=== PATIENT | female | born 2005 | race Two or more races ===

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

== ENCOUNTER 2025-02-25 02:42 | Observation (INO) | payer BC, SELFPAY ==
[2025-02-25] VITALS (23 sets, daily range): BP systolic 52–127; BP diastolic 36–74; PULSE 68–109; RESP 16–21; TEMP 36.1–37.1; O2SAT 95–100; BMI 32.9
--- NOTE | 2025-02-25 02:56 | XR_ITS ---
Examination: Retroperitoneal ultrasound, complete Technique: Multiple high resolution grayscale images of the retroperitoneum obtained, including kidneys and bladder. Exam date and time: February 25, 2025, 0437 hours INDICATIONS: Flank pain abdominal pain beginning at 2:00 a.m. this morning FINDINGS: Right kidney 11.2 cm renal cortex 1.7 cm Left kidney 11.0 cm renal cortex 3.1 cm No hydronephrosis or renal calculi Contracted urinary bladder IMPRESSION: No hydronephrosis or renal calculi
--- NOTE | 2025-02-25 02:56 | XR_ITS ---
Examination: Transvaginal ultrasound of the pelvis, complete Technique: Transvaginal sonographic images pelvis performed using goodwin scale imaging Exam date and time: February 25, 2025, 0422 hours INDICATIONS: Pelvic pain beginning 2:00 a.m. this morning FINDINGS: Uterus 7.3 cm endometrial stripe 1.27 cm no uterine mass or intrauterine gestation Right ovary 5.6 cm arterial flow, 4.8 x 2.6 x 4.0 cm cyst Left ovary 2.8 cm arterial flow IMPRESSION: No uterine mass or intrauterine gestation Right ovarian cyst 4.8 x 2.6 x 4.0 cm with internal echogenicity, consider hemorrhagic cyst.
--- NOTE | 2025-02-25 02:56 | EDRME_ITS ---
Rapid Medical Screening Exam [facility] Arrival date/time: 02/25/25 02:42 19F with no significant PMH presents to ED with several hours of sudden bilateral lower ab/pelvic pain and possible dysuria. Patient is not on cycle. Chief Complaint: Abdominal Pain Vital signs: Vital Signs Temperature 98.3 F 02/25/25 02:50 Pulse Rate 104 H 02/25/25 02:50 Respiratory Rate 18 02/25/25 02:50 Blood Pressure 102/72 02/25/25 02:50 Pulse Oximetry (%) 97 02/25/25 02:50 Oxygen Delivery Method Room Air 02/25/25 02:50 Exam: RLQ and LLQ mild tenderness Clinical Impression: appy vs ovarian torsion vs pelvic pain vs PID gastroenteritis vs ab pain vs food poisoning
--- NOTE | 2025-02-25 02:58 | XR_ITS ---
Examination: Abdomen sonogram, Limited Date and time of exam: February 25, 2025, 0433 hours INDICATIONS: Pelvic lower abdominal cramping beginning 2:00 a.m. this morning Technique: Real-time goodwin scale transabdominal sonographic images of the lower abdomen obtained. Findings: No sonographic visualization appendix 4.8 x 3.6 x 4.2 cm right adnexal cyst IMPRESSION: No sonographic visualization appendix
[2025-02-25] MEDS: NAPROXEN 250 MG TABLET 500 MG PO (03:25)
[2025-02-25 03:49] LABS: Collection Type, Urine Clean Catch
[2025-02-25 03:56] LABS: HCG Qualitative,Urine Negative
[2025-02-25 03:57] LABS: Amorphous Crystals,Urine Present (Absent); Bacteria,Urine Rare; Bilirubin,Urine Negative (Negative); Blood,Urine Negative (Negative); Clarity,Urine Clear (Clear/Hazy); Color,Urine Lt-Yellow (Lt Yel-Yel); Culture Indicated,Urine Not Indicated; Glucose, Urine Negative (Negative); Ketones,Urine Negative (Negative); Leukocyte Esterase,Urine Negative (Negative); Nitrite,Urine Negative (Negative); PH,Urine 6.5 (5.0-7.0); Protein,Urine Negative (Neg - Trace); RBC,Urine 1 /hpf (0-3); Specific Gravity,Urine 1.016 (1.001-1.035); Squamous Epithelial Cell,Urine 2 /hpf (0-5); Urobilinogen,Urine Negative mg/dL (0.0-1.0); WBC,Urine 1 /hpf (0-5)
--- NOTE | 2025-02-25 05:32 | PRELIM_ITS ---
PRELIM ADDENDUM Trace fluid is seen in the cul-de-sac. Report Electronically Signed By: Catrina De La Garza 02/25/2025 6:08:17 AM [EST] ORIGINAL PRELIM REPORT: Focused right lower quadrant ultrasound. February 25, 2025 0433 hours Clinical history: r/o appy Comparison: No prior study is available for comparison. Findings: The appendix is not seen in this focused examination of the right lower quadrant. Right adnexal cyst measuring 4.8 x 3.4 x 4.2 cm.There is no evidence of free fluid or fluid collection. Impression: Nonvisualized appendix. Right adnexal cyst measuring 4.8 x 3.4 x 4.2 cm. Report Electronically Signed By: Catrina De La Garza 02/25/2025 5:32:25 AM [EST]
--- NOTE | 2025-02-25 05:45 | PRELIM_ITS ---
Renal/Retroperitoneal ultrasound. February 25, 2025 0437 hours Clinical history: Sudden pelvic pain; r/o stone Technique: Duplex scan of the bilateral renal arterial and venous tree was performed utilizing 2D grayscale imaging, Doppler spectral analysis and color flow. Comparison:No prior study is available for comparison. Findings: Right: The right kidney measures 11.2 x 4.5 x 5.5cm and is unremarkable. There is no hydronephrosis or renal calculus. The corticomedullary differentiation is maintained. Left: The left kidney measures 11 x 5.9 x 5.8cm and is unremarkable. There is no hydronephrosis or renal calculus. The corticomedullary differentiation is maintained. The urinary bladder is empty. No solid mass. Impression: Unremarkable renal ultrasound examination. Empty urinary bladder. Report Electronically Signed By: Catrina De La Garza 02/25/2025 5:45:29 AM [EST]
--- NOTE | 2025-02-25 05:57 | PRELIM_ITS ---
Pelvic ultrasound (transvaginal). February 25, 2025 0422 hours Clinical history: Sudden pelvic pain Technique: Real-time, grayscale, transvaginal pelvic ultrasound was performed using Duplex scanning including arterial inflow, venous outflow, color and spectral Doppler. Comparison: No prior study is available for comparison. Findings: The uterus is normal in size, measuring 7.3 x 4.2 x 6.1cm. The endometrium is unremarkable and measures 1.3cm. The right ovary measures 5.6 x 4.2 x 6.1cm and demonstrates a cyst measuring 4.8 x 2.6 x 4 cm. The left ovary measures 2.8 x 1.4 x 2cm and is unremarkable. Both ovaries demonstrate color flow and spectral waveforms on Doppler evaluation. There is no adnexal mass. There is minimal fluid in the right adnexa and cul-de-sac. Impression: No evidence of ovarian torsion. Right ovarian cyst measuring 4.8 x 2.6 x 4 cm. Minimal fluid in the right adnexa and cul-de-sac. Report Electronically Signed By: Catrina De La Garza 02/25/2025 5:57:20 AM [EST]
--- NOTE | 2025-02-25 07:32 | XR_ITS ---
Examination: CT abdomen and pelvis without contrast. Coronal 3-D reconstructions. Sagittal 2-D reconstructions. Date and time of exam: February 25, 2025, 0805 hours INDICATIONS: Sudden onset lower abdominal pelvic pain today with dysuria CTDI: vol (mGy): 11.5 DLP: (mGycm): 683 Technique: Axial images of the abdomen have been obtained, 3 mm slice thickness Intravenous contrast material has not been administered. Low dose protocols were performed. One or more of the following dose reduction techniques were used; automated exposure control, adjustment of the mA and/or KV according to patient size, use of iterative reconstruction technique. Findings: Subphrenic fluid between the hemidiaphragm and the spleen No obvious splenic laceration Liver is not enlarged No gallstones No pancreatic or adrenal mass No renal or ureteral calculi Tiny fat-containing umbilical hernia Normal appendix Abnormal uterus, markedly enlarged endometrium Urinary bladder intact Osseous structures intact IMPRESSION: Recommend repeating the study with intravenous contrast to confirm subphrenic fluid collection between the left hemidiaphragm and spleen and to confirm integrity of the spleen No renal or ureteral calculi, no hydronephrosis Normal appendix Abnormal uterus with markedly enlarged endometrium, recommend pelvic sonography follow-up
[2025-02-25] MEDS: SODIUM CHLORIDE 0.9% 1000 ML 1,000 ML 999 ML IV ×3 (09:05→13:07)
--- NOTE | 2025-02-25 09:08 | PC.NURSE ---
patient states she felt like she was going to faint, patient noted to be pale and diaphoretic, MD notified ,and new orders given for bolus , bs 101
--- NOTE | 2025-02-25 09:34 | EKG_ITS ---
[facility] Test Date: 2025-02-25 Pat Name: ANGELES CHANCE Department: Room: - Gender: Female [employer] In[employer]: : 2005 Requested By: Lucius Mack Order Number: [id number] Reading MD: Lucius Mack Measurements Intervals Remus Rate: 62 P: 6 MS: 139 QRS: 52 QRSD: 106 T: 31 QT: 412 QTc: 421 Interpretive Statements SINUS RHYTHM Compared to ECG 08/03/2024 11:43:32 Sinus tachycardia no longer present T-wave abnormality no longer present /store/S0/[id number].pdf
--- NOTE | 2025-02-25 10:29 | XR_ITS ---
Examination: CT abdomen with intravenous contrast CT pelvis with intravenous contrast 2-D coronal reconstructions 2-D sagittal reconstructions Date and time of exam: February 25, 2025, 1432 hours, comparison February 25, 2025 0806 hours INDICATIONS: Lower abdominal pain and cramping today. CTDI: vol (mGy) 16.1 DLP: (mGycm) 974 Technique: Multiple axial sections of the abdomen and pelvis have been obtained. 64 slice high-resolution scanner used. 3 mm axial sections have been obtained, post intravenous injection 60 cc [id number] 2-D sagittal, coronal reconstructions obtained. Low dose protocols were performed. One or more of the following dose reduction techniques were used; automated exposure control, adjustment of the mA and/or KV according to patient size, use of iterative reconstruction technique. Findings: No focal liver or splenic lesions Mild free fluid throughout the abdomen No obstruction No hydronephrosis Aorta normal size No bowel obstruction Anteverted uterus, thick walled cystic mass projects on this contrast study above the uterus Mild free fluid in the pelvis Normal appendix Osseous tractors intact IMPRESSION: Mild free fluid throughout the abdomen, clinical correlation advised Normal appendix Abnormal thick walled cystic mass above the uterus, measuring at least 6.5 x 5.2 cm in dimension, differential would include ovarian tumor, tubo-ovarian abscess, ruptured hemorrhagic cyst, ruptured ectopic in the appropriate clinical setting, clinical correlation is advised, recommend OB Y consultation
[2025-02-25 10:34] LABS: Basophils # (Auto) 0.0 Thou/mm3 (0.0-0.2); Basophils % (Auto) 0 % (0-2.5); Eosinophils # (Auto) 0.0 Thou/mm3 (0.0-0.5); Eosinophils % (Auto) 0 % (0-10); Hematocrit 37.1 % (36.0-46.0); Hemoglobin 12.6 g/dL (12.0-16.0); Immature Granulocytes Auto 0.05 Thou/mm3 (0.00-0.00); Lymphocytes # (Auto) 2.5 Thou/mm3 (1.0-5.0); Lymphocytes % (Auto) 17 % (10-50); Mean Corpuscular HGB Conc 34.0 g/dl (31.0-37.0); Mean Corpuscular Hemoglobin 30.4 pg (25.0-35.0); Mean Corpuscular Volume 89 fL (80-100); Monocytes # (Auto) 0.8 Thou/mm3 (0.0-0.8); Monocytes % (Auto) 6 % (0-12); Neutrophils # (Auto) 11.4 Thou/mm3 (1.8-7.7); Neutrophils % (Auto) 77 % (37-80); Nucleated Red Blood Cell # 0.00 Thou/mm3 (0.00-0.00); Nucleated Red Blood Cell % 0 /100 WBC (0); Platelet Count 299 Thou/mm3 (140-440); RDW Standard Deviation 41.7 fL (36.4-46.3); Red Blood Count 4.15 Miln/mm3 (4.00-5.20); White Blood Count 14.8 Thou/mm3 (4.5-11.0)
[2025-02-25] MEDS: FAMOTIDINE INJ 10 MG/ML VIAL 2 ML 20 MG IVP (10:38)
[2025-02-25] MEDS: ACETAMINOPHEN IVPB 1,000 MG/100 ML VIAL 250 MG IV (10:39)
[2025-02-25 10:49] LABS: INR 1.0 (0.9-1.3); Prothrombin Time 10.9 Seconds (9.0-12.2)
[2025-02-25 10:55] LABS: Alanine Aminotransferase 23 U/L (10-49); Albumin, Serum 4.1 gm/dL (3.5-5.0); Albumin/Globulin Ratio 2.3 (1.2-2.2); Alkaline Phosphatase 63 U/L (46-116); Anion Gap 11 (7-16); Aspartate Amino Transferase 21 U/L (0-34); BUN/Creatinine Ratio 17 Ratio (12-20); Bilirubin,Total 0.5 mg/dL (0.3-1.2); Blood Urea Nitrogen 12 mg/dL (9-23); Calcium 8.4 mg/dL (8.3-10.6); Calcium (Corrected) 8.4 mg/dL (8.5-10.1); Carbon Dioxide 22.5 mMol/L (20.0-31.0); Chloride 108 mMol/L (98-107); Creatinine (Component) 0.7 mg/dL (0.6-1.3); Estimated Creatinine Clearance 148.1 mL/min (>60); Globulin 1.8 gm/dL (2.3-3.5); Glucose 96 mg/dL (74-106); Lipase 24 U/L (12-53); Osmolality,Calculated 280 (275-295); Potassium 3.9 mMol/L (3.4-5.1); Sodium 141 mMol/L (136-145); Total Protein 5.9 gm/dL (5.7-8.2); eGFR > 60 See Note
--- NOTE | 2025-02-25 12:49 | PD.EDABDPN ---
ED Abdominal Pain RME/HPI General Chief Complaint: Abdominal Pain Stated complaint: ABD PAIN Time seen by provider: 02/25/25 06:32 Arrival date/time: 02/25/25 02:42 Limitations: no limitations RME / HPI RME / HPI narrative: 02/25/25 02:42 19F with no significant PMH presents to ED with several hours of sudden bilateral lower ab/pelvic pain and possible dysuria. Patient is not on cycle. DR. RUBY MAIN ED EVALUATION: 19 year old female with no stated medical history presents to the ED for evaluation of severe lower abdominal cramping pain that woke her from sleep at midnight. Accompanied by some dysuria. No known modifying factors at home. Exam: RLQ and LLQ mild tenderness Impression: appy vs ovarian torsion vs pelvic pain vs PID gastroenteritis vs ab pain vs food poisoning Related Data Home Medications ?Medication ?Instructions ?Recorded ?Confirmed famotidine 20 mg tablet mg 02/25/25 omeprazole 20 mg capsule,delayed mg 02/25/25 release Allergies Allergy/AdvReac Type Severity Reaction Status Date / Time BANANAS Allergy Mild Difficulty Uncoded 02/25/25 02:46 Breathing Review of Systems Review of Systems Systems Reviewed: All systems reviewed, normal except as documented Past Medical History Past Medical History CARDIAC: Negative Cardiac Disorders or Congestive Heart Failure RESPIRATORY: Negative Chronic Obstructive Pulmonary Disease (COPD) or Asthma GENITOURINARY: Negative Renal Disease ENDOCRINE: Negative Diabetes Mellitus Type 1 or Diabetes Mellitus Type 2 HEMATOLOGIC: Negative Sickle Cell Disease Social History SMOKING STATUS: Never smoker ED Exam General Limitations: Present no limitations General appearance: Present alert and in no apparent distress Head Head exam: Present atraumatic, normocephalic and normal inspection Eye Eye exam: Present normal appearance, PERRL and EOMI ENT ENT exam: Present normal exam, normal oropharynx and mucous membranes moist Neck Neck exam: Present normal inspection, full ROM and trachea midline Chest Chest inspection: Present normal inspection and symmetric chest wall rise Respiratory Respiratory exam: Present normal lung sounds bilaterally Cardiovascular Cardiovascular exam: Present regular rate, normal rhythm and normal heart sounds Abdominal Exam Abdominal exam: Present soft, tenderness (lower pelvic pain ) and normal bowel sounds; Absent guarding or rebound Extremities Exam Extremities exam: Present normal inspection and full ROM Back Exam Back exam: Present normal inspection and full ROM Neurological Exam Neurological exam: Present alert, oriented X3 and CN II-XII intact Psychiatric Psychiatric exam: Present normal affect and normal mood Skin Skin exam: Present warm, dry, intact and normal color Course Quality Measures none Orders Category Date Time Status COVID-19 Screening Questionnaire NOW Care 02/25/25 16:[address] Screening NOW Care 02/25/25 10:29 Active Decision to Admit X1 Care 02/25/25 16:41 Completed EKG (ED ONLY) *Do not use* NOW Care 02/25/25 09:34 Completed Consult to General Surgery Stat Cons 02/25/25 16:[address] abdomen pelvis w con Stat Exams 02/25/25 10:[address] abdomen pelvis wo con Stat Exams 02/25/25 07:32 Completed EKG (ED Only) Stat Exams 02/25/25 09:34 Draft US abdomen limited Stat Exams 02/25/25 02:58 Completed US pelvic complete Stat Exams 02/25/25 16:37 Completed US retroperitoneal comp Stat Exams 02/25/25 02:56 Completed US transvaginal Stat Exams 02/25/25 02:56 Completed US transvaginal Stat Exams 02/25/25 16:04 Completed CBC Stat Lab 02/25/25 09:43 Completed CBC Stat Lab 02/25/25 17:13 Received CMP [Comprehensive Metabolic Panel] Stat Lab 02/25/25 09:43 Completed HCG Qualitative,Urine Stat Lab 02/25/25 02:58 Completed Lipase Stat Lab 02/25/25 09:43 Completed Prothrombin Time with INR Stat Lab 02/25/25 09:43 Completed Type and Screen Stat Lab 02/25/25 16:20 Completed Urinalysis, C/S if Indicated Stat Lab 02/25/25 02:58 Completed Acetaminophen Ivpb [Ofirmev Inj] Med 02/25/25 09:20 Discontinued 1,000 mg in 100 ml IV X1 Famotidine Inj [Pepcid Inj] Med 02/25/25 09:20 Discontinued 20 mg IVP X1 ONE Ketorolac Inj [Toradol Inj] Med 02/25/25 09:15 Discontinued 15 mg IVP X1 ONE Morphine* Inj Med 02/25/25 13:46 Discontinued 2 mg IVP X1 ONE Naproxen [Naprosyn] Med 02/25/25 02:58 Discontinued 500 mg PO X1 ONE Ondansetron Inj [Zofran Inj] Med 02/25/25 13:46 Discontinued 4 mg IVP X1 ONE Sodium Chloride 0.9% 1000 ml [Ns] 1,000 ml Med 02/25/25 09:05 Discontinued IV 999 mls/hr Sodium Chloride 0.9% 1000 ml [Ns] 1,000 ml Med 02/25/25 10:46 Discontinued IV 999 mls/hr Sodium Chloride 0.9% 1000 ml [Ns] 1,000 ml Med 02/25/25 13:05 Discontinued IV 999 mls/hr Vital Signs Vital signs: Vital Signs Temperature 98.3 F 02/25/25 02:50 Pulse Rate 104 H 02/25/25 02:50 Respiratory Rate 18 02/25/25 02:50 Blood Pressure 102/72 02/25/25 02:50 Pulse Oximetry (%) 97 02/25/25 02:50 Oxygen Delivery Method Room Air 02/25/25 02:50 Pulse ox is 97% on room air which is adequate. Abdominal Pain MDM MDM Narrative MDM Narrative:: Loan Olson am scribing for and in the presence of Dr. Ruby. Patient data External records reviewed:: [facility] previous records Clinical information provided by:: patient Social determinants that could affect healthcare access:: none Patient has the following chronic illnesses:: None How is presenting disease/condition affected by chronic disease/condition?: no chronic disease Evaluation data The following diagnostics were reviewed and interpreted by me:: lab results, radiology exam(s) and EKG tracing(s) (EKG @ 09:40 AM. Normal sinus rhythm, rate 62, no STEMI. ) Lab and/or radiology exams considered but not ordered:: None Interpretation Summary: Ordering Physician: Willie Carrion PA-C Date of Service: 02/25/25 Procedure(s): US retroperitoneal comp Accession Number(s): [id number] cc: Page Caba; Enrique Holder MD; Willie Carrion PA-C~ Examination: Retroperitoneal ultrasound, complete Technique: Multiple high resolution grayscale images of the retroperitoneum obtained, including kidneys and bladder. Exam date and time: February 25, 2025, 0437 hours INDICATIONS: Flank pain abdominal pain beginning at 2:00 a.m. this morning FINDINGS: Right kidney 11.2 cm renal cortex 1.7 cm Left kidney 11.0 cm renal cortex 3.1 cm No hydronephrosis or renal calculi Contracted urinary bladder IMPRESSION: No hydronephrosis or renal calculi Dictated By: Enrique Holder MD Signed By: <Electronically signed by Enrique Holder MD in OV> 02/25/25 0648 Ordering Physician: Willie Carrion PA-C Date of Service: 02/25/25 Procedure(s): US transvaginal Accession Number(s): [id number] cc: Page Caba; Enrique Holder MD; Willie Carrion PA-C~ Examination: Transvaginal ultrasound of the pelvis, complete Technique: Transvaginal sonographic images pelvis performed using goodwin scale imaging Exam date and time: February 25, 2025, 0422 hours INDICATIONS: Pelvic pain beginning 2:00 a.m. this morning FINDINGS: Uterus 7.3 cm endometrial stripe 1.27 cm no uterine mass or intrauterine gestation Right ovary 5.6 cm arterial flow, 4.8 x 2.6 x 4.0 cm cyst Left ovary 2.8 cm arterial flow IMPRESSION: No uterine mass or intrauterine gestation Right ovarian cyst 4.8 x 2.6 x 4.0 cm with internal echogenicity, consider hemorrhagic cyst. Dictated By: Enrique Holder MD Signed By: <Electronically signed by Enrique Holder MD in OV> 02/25/25 0645 Ordering Physician: Willie Carrion PA-C Date of Service: 02/25/25 Procedure(s): US abdomen limited Accession Number(s): [id number] cc: Page Caba; Enrique Holder MD; Willie Carrion PA-C~ Examination: Abdomen sonogram, Limited Date and time of exam: February 25, 2025, 0433 hours INDICATIONS: Pelvic lower abdominal cramping beginning 2:00 a.m. this morning Technique: Real-time goodwin scale transabdominal sonographic images of the lower abdomen obtained. Findings: No sonographic visualization appendix 4.8 x 3.6 x 4.2 cm right adnexal cyst IMPRESSION: No sonographic visualization appendix Dictated By: Enrique Holder MD Signed By: <Electronically signed by Enrique Holder MD in OV> 02/25/25 0647 Ordering Physician: Lucius Ruby MD Date of Service: 02/25/25 Procedure(s): CT abdomen pelvis wo con Accession Number(s): [id number] cc: Page Caba; Lucius Ruby MD; Enrique Holder MD~ Examination: CT abdomen and pelvis without contrast. Coronal 3-D reconstructions. Sagittal 2-D reconstructions. Date and time of exam: February 25, 2025, 0805 hours INDICATIONS: Sudden onset lower abdominal pelvic pain today with dysuria CTDI: vol (mGy): 11.5 DLP: (mGycm): 683 Technique: Axial images of the abdomen have been obtained, 3 mm slice thickness Intravenous contrast material has not been administered. Low dose protocols were performed. One or more of the following dose reduction techniques were used; automated exposure control, adjustment of the mA and/or KV according to patient size, use of iterative reconstruction technique. Findings: Subphrenic fluid between the hemidiaphragm and the spleen No obvious splenic laceration Liver is not enlarged No gallstones No pancreatic or adrenal mass No renal or ureteral calculi Tiny fat-containing umbilical hernia Normal appendix Abnormal uterus, markedly enlarged endometrium Urinary bladder intact Osseous structures intact IMPRESSION: Recommend repeating the study with intravenous contrast to confirm subphrenic fluid collection between the left hemidiaphragm and spleen and to confirm integrity of the spleen No renal or ureteral calculi, no hydronephrosis Normal appendix Abnormal uterus with markedly enlarged endometrium, recommend pelvic sonography follow-up Dictated By: Enrique Holder MD Signed By: <Electronically signed by Enrique Holder MD in OV> 02/25/25 0929 Ordering Physician: Lucius Ruby MD Date of Service: 02/25/25 Procedure(s): CT abdomen pelvis w con Accession Number(s): [id number] cc: Page Caba; Lucius Ruby MD; Enrique Holder MD~ Examination: CT abdomen with intravenous contrast CT pelvis with intravenous contrast 2-D coronal reconstructions 2-D sagittal reconstructions Date and time of exam: February 25, 2025, 1432 hours, comparison February 25, 2025 0806 hours INDICATIONS: Lower abdominal pain and cramping today. CTDI: vol (mGy) 16.1 DLP: (mGycm) 974 Technique: Multiple axial sections of the abdomen and pelvis have been obtained. 64 slice high-resolution scanner used. 3 mm axial sections have been obtained, post intravenous injection 60 cc [id number] 2-D sagittal, coronal reconstructions obtained. Low dose protocols were performed. One or more of the following dose reduction techniques were used; automated exposure control, adjustment of the mA and/or KV according to patient size, use of iterative reconstruction technique. Findings: No focal liver or splenic lesions Mild free fluid throughout the abdomen No obstruction No hydronephrosis Aorta normal size No bowel obstruction Anteverted uterus, thick walled cystic mass projects on this contrast study above the uterus Mild free fluid in the pelvis Normal appendix Osseous tractors intact IMPRESSION: Mild free fluid throughout the abdomen, clinical correlation advised Normal appendix Abnormal thick walled cystic mass above the uterus, measuring at least 6.5 x 5.2 cm in dimension, differential would include ovarian tumor, tubo-ovarian abscess, ruptured hemorrhagic cyst, ruptured ectopic in the appropriate clinical setting, clinical correlation is advised, recommend OB Y consultation Dictated By: Enrique Holder MD Signed By: <Electronically signed by Enrique Holder MD in OV> 02/25/25 1517 Medications / Prescriptions Medications or Prescriptions considered but not ordered:: None Medication administrations:: Medication Administration History Discontinued Medications Famotidine (Famotidine Inj 10 Mg/Ml Vial 2 Ml) 20 mg IVP X1 ONE Stop: 02/25/25 09:21 Last Admin: 02/25/25 10:38 Dose: 20 mg Documented By: BY Acetaminophen (Ofirmev Inj) 1,000 mg in 100 mls @ 250 mls/hr IV X1 ONE Stop: 02/25/25 09:43 Last Infusion: 02/25/25 11:03 Dose: Infused Documented By: Admin: 02/25/25 10:39 Dose: 250 mls/hr Documented By: BY Sodium Chloride (Ns) 1,000 mls @ 999 mls/hr IV .Q1H1M ONE Stop: 02/25/25 10:05 Last Infusion: 02/25/25 10:48 Dose: Infused Documented By: Admin: 02/25/25 09:05 Dose: 999 mls/hr Documented By: BY Sodium Chloride (Ns) 1,000 mls @ 999 mls/hr IV .Q1H1M ONE Stop: 02/25/25 11:46 Last Infusion: 02/25/25 12:05 Dose: Infused Documented By: Admin: 02/25/25 10:47 Dose: 999 mls/hr Documented By: BY Sodium Chloride (Ns) 1,000 mls @ 999 mls/hr IV .Q1H1M ONE Stop: 02/25/25 14:05 Last Infusion: 02/25/25 13:54 Dose: Infused Documented By: Admin: 02/25/25 13:07 Dose: 999 mls/hr Documented By: BY Ketorolac Tromethamine (Ketorolac Inj 30 Mg/Ml Vial) 15 mg IVP X1 ONE Stop: 02/25/25 09:16 Last Admin: 02/25/25 11:02 Dose: Not Given Documented By: BY Non-Admin Reason: Cancelled by Provider Morphine Sulfate (Morphine Sulf Inj 4 Mg/Ml Vial) 2 mg IVP X1 ONE Stop: 02/25/25 13:47 Last Admin: 02/25/25 13:52 Dose: 2 mg Documented By: NIRMALA Naproxen (Naproxen 250 Mg Tablet) 500 mg PO X1 ONE Stop: 02/25/25 02:59 Last Admin: 02/25/25 03:25 Dose: 500 mg Documented By: JC Ondansetron HCl (Ondansetron Inj 2 Mg/Ml Inj 2 Ml) 4 mg IVP X1 ONE; Protocol Stop: 02/25/25 13:47 Last Admin: 02/25/25 13:51 Dose: 4 mg Documented By: NIRMALA See above Consultations Consultation(s) initiated? (list below): Yes Consultation #1 (Physician, Specialty, Details): I spoke with OBGYN Dr. Jacobo. States she will come down and examine the patient in the ED. Time: 15:10 Consultation #2 (Physician, Specialty, Details): Dr. Jacobo has evaluated the patient in the ED. She recommends repeating transvaginal + pelvic ultrasounds and labs. States we will be admitting the patient to observation. Patient additionally recommends we consult with general surgery. Consultation #3 (Physician, Specialty, Details): I spoke with surgeon Dr. Nicole who will come down and evaluate the patient in the ED. She agrees to consult. Diagnosis Differential diagnosis abdominal pain: abdominal pain, acute appendicitis, calculus of kidney, constipation, endometriosis and gastroenteritis Most likely diagnosis given after review of the tests above:: Abdominal pain thickened endometrium Hemorrhagic ovarian cyst Admission Indicated Admission indicated?: indicated Admission Request Was there a request for admission?: Yes Admission Attestation Admission request attestation: Discussed case with [] from Hospitalist service regarding admission. Discussed patients ED course, exam findings, labs, and radiology results. The Hospitalist [agrees,declines] to accept the patient for admission. Disposition Plan Disposition Plan: Admit Discharge Plan Plan Patient Disposition: Admit Acute Care w/in Hospital Prescriptions/Referrals Prescriptions/Med Rec: No Action famotidine 20 mg tablet Patient Comments: TAKE 1 TABLET BY MOUTH TWICE A DAY omeprazole 20 mg capsule,delayed release(/EC) Patient Comments: TAKE 1 CAPSULE BY MOUTH EVERY DAY Referrals: Page Caba PA-C [Primary Care Provider] - In 1 week Problem List Clinical Impression: Abdominal pain, Thickened endometrium, Hemorrhagic ovarian cyst Patient/Caregiver Discharge Instructions Print Language: Japanese Stand Alone Forms: Lisa Award Info., Patient Portal Info Letter
--- NOTE | 2025-02-25 13:03 | PC.NURSE ---
patient had another episode of feeling light headed when sat up, patient states she could barely hear voices as if her ears where muffled, patient sat back down promptly and MD notified , new order for fluid given, patient is to wait for ct at this time, until 1l of fluids is given per MD kraft
[2025-02-25] MEDS: ONDANSETRON INJ 2 MG/ML INJ 2 ML 4 MG IVP (13:51)
[2025-02-25] MEDS: MORPHINE SULF INJ 4 MG/ML VIAL 2 MG IVP (13:52)
--- NOTE | 2025-02-25 16:04 | XR_ITS ---
Examination: Transvaginal ultrasound of the pelvis, complete Technique: Transvaginal sonographic images pelvis performed using goodwin scale imaging Exam date and time: February 26, 2024, 1619 hours INDICATIONS: Abnormal thick walled mass above the uterus, measuring at least 6.5 x 5.2 [address] in dimension on CT examination today FINDINGS: . Uterus 7.0 cm no uterine mass or intrauterine gestation Endometrial stripe 0.9 cm Right ovary is obscured by bowel gas, there is free fluid in the right ovarian region Left ovary obscured by bowel gas IMPRESSION: Consider MRI pelvis without contrast follow-up to assess the abnormal thick walled cystic mass in the pelvis
--- NOTE | 2025-02-25 16:24 | PD.GYNCONS ---
WIDE PIECE GOODS INSPECTOR HPI Data of Consult Patient: new to practice Consult date: 02/25/25 Requesting Physician: Lucius Ruff MD Primary Care Provider: Page Caba PA-C Consult Narrative Reason for consult: pelvic pain History of present illness: The patient is a 19-year-old G0 who presented to the ER around 3:00 or 4:00 this morning after waking up and feeling severe mid abdominal pain around 2:00 in the morning. She denied nausea or vomiting. She states she is due for her next menstrual cycle any day now. She denies fevers or chills. She denies diarrhea. She denies blood in her stools. She denies throwing up blood. Her boyfriend, who is a [employer] student, is at bedside. Gynecology was consulted as patient continues to have near syncopal episodes and abdominal pain with deep breaths. Her test is negative. Her hemoglobin is 12.7. A transvaginal ultrasound at approximately 420 in the morning did not reveal any free fluid. She had a 4.8 x 4 cm cyst on her right ovary. Left ovary was normal. No free fluid in the cul-de-sac. Uterus was 7.3 cm with a stripe of 1.[address] was done later at around in the workup revealing some fluid around her spleen. She then recently had a CT scan with contrast that revealed a thick walled mass above the uterus 6.5 x 5.2 cm with mild fluid in her abdomen and pelvis. Concern is about a ruptured corpus luteum cyst. Doubt TOA as patient has no fevers, chills or foul vaginal discharge. She does have a history of some type of upper abdominal pain and was prescribed some type of reflux medication. cc:: cc: Review of Systems Review of Systems Narrative Review of Systems: No fevers chills. No nausea or vomiting. She reports diffuse abdominal pain. No dysuria. She reports feeling dizzy. She reports it being difficult to breathe when she lays flat secondary to pain. She reports pain in her back. Past Medical History Social History SOCIAL: The patient is single. Her boyfriend is at bedside. 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 Past Medical History Comments PMH COMMENT: Patient denies any chronic medical problems except mild reflux. She was in the ER 1 time with an anxiety attack. She denies migraine headaches, denies asthma, denies hypertension, denies diabetes. She states she has never had any surgery. She does not use control. She has never had a Pap or pelvic exam. Meds Home Medications and Allergies Allergies Allergy/AdvReac Type Severity Reaction Status Date / Time BANANAS Allergy Mild Difficulty Uncoded 02/25/25 02:46 Breathing Exam - WIDE PIECE GOODS INSPECTOR Vital Signs Temp Pulse Resp BP Pulse Ox O2 Del Method 98.4 F 101 H 17 103/52 L 99 Room Air 02/25/25 12:11 02/25/25 16:23 02/25/25 16:23 02/25/25 16:23 02/25/25 16:23 02/25/25 16:23 Narrative Exam Patient is alert and orient x 3 she shifts around in bed a lot to get comfortable. She makes good eye contact and is a good historian. She looks slightly pale but not diaphoretic. When I am seeing the patient her pulse is in the upper 90s and blood pressure in the high 90s over 60s versus low 100s over 60s. Constitutional Constitutional: mild distress and cooperative Routine Abdominal Exam Abdominal: Present soft, tenderness, rebound and guarding Comments: Patient's abdomen is soft she has diffuse abdominal tenderness with guarding and rebound. Her abdomen is not distended. A pelvic exam is deferred. WIDE PIECE GOODS INSPECTOR - Results Labs 02/25/25 09:43 02/25/25 09:43 Labs: Short CBC 02/25/25 Range/Units 09:43 WBC 14.8 H (4.5-11.0) Thou/mm3 Hgb 12.6 (12.0-16.0) g/dL Hct 37.1 (36.0-46.0) % Plt Count 299 (140-440) Thou/mm3 BMP 02/25/25 09:43 Sodium 141 Potassium 3.9 Chloride 108 H Carbon Dioxide 22.5 BUN 12 Creatinine 0.7 Glucose 96 Calcium 8.4 Liver Function 02/25/25 Range/Units 09:43 Total Bilirubin 0.5 (0.3-1.2) mg/dL AST 21 (0-34) U/L ALT 23 (10-49) U/L Alkaline Phosphatase 63 (46-116) U/L Albumin 4.1 (3.5-5.0) gm/dL Urine 02/25/25 Range/Units 02:58 Urine Color Lt-Yellow (Lt Yel-Yel) Urine Clarity Clear (Clear/Hazy) Urine pH 6.5 (5.0-7.0) Ur Specific [place] 1.016 (1.001-1.035) Urine Protein Negative (Neg - Trace) Urine Glucose (UA) Negative (Negative) Assessment and Plan Assessment and plan (1) Abdominal pain in female: Status: Acute Assessment and plan: The patient has diffuse abdominal pain of unclear etiology. Her first transvaginal ultrasound did not reveal free fluid in posterior cul-de-sac which would be suggestive of a ruptured ovarian cyst as with a hemorrhagic corpus luteum cyst. Her test is negative so she cannot have a ruptured ectopic . The second CT with contrast reveals some type of thick walled mass above the uterus but again I am not sure if this is a clot or continued bleeding and him unsure where the bleeding was coming from.. At this point, I ordered a stat transvaginal ultrasound, a stat CBC and a type and screen. I recommend to the ER physician that he contact general surgery come see the patient. She most likely will need to be admitted for observation. If the repeat transvaginal ultrasound reveals large amounts of free fluid in her posterior cul-de-sac and is suggestive of a possible ruptured corpus luteum cyst, we might have to proceed to the OR for diagnostic laparoscopy possible evacuation of blood. This was explained to the patient and her boyfriend in detail. At this time, we will get more testing and keep the patient NPO. If repeat testing is not suggestive of any acute gynecological problem, she will most likely have to be admitted for observation overnight and repeat labs in the morning. We can admit her to the gynecology service if needed.
--- NOTE | 2025-02-25 16:37 | XR_ITS ---
Examination: Pelvic ultrasound, transabdominal, complete Technique: Transabdominal ultrasound of the pelvis performed using grayscale imaging Date and time of exam: February 25, 2025, 1635 hours Abnormal thick-walled cystic mass above the uterus 6.[address] study of the pelvis today FINDINGS: Uterus 7.1 cm endometrial stripe 0.8 cm no No uterine mass or intrauterine gestation Right ovary 6.6 cm arterial flow, 4.5 x 4.7 x 3.8 cm complex cystic mass with extensive internal echoes and free fluid in the right adnexal region Left ovary not visualized, free fluid in the left adnexal region IMPRESSION: Abnormal partially cystic partially solid mass in the right adnexal region, differential unchanged, includes hemorrhagic cyst, ovarian tumor, tubo-ovarian abscess, ruptured ectopic in the appropriate clinical setting The appearance should be clinically correlated Consider MRI pelvis without contrast follow-up
--- NOTE | 2025-02-25 17:07 | PD.SURCONS ---
HPI Consult details History of present illness: 19F with hx of GERD presenting to ER with abdominal pain. Pt reports pain began suddenly around 2am, present in the infraumbilical region, and she has not experienced similar pain before. She has had episodes of nausea with movement and also while in ER had two syncopal episodes which she has also never had before. Her LMP was on 01/27. She has undergone US of the retroperitoneum, transvaginal and abdominal which showed a right adnexal cyst possibly hemorrhagic approx 4cm, followed by noncon CT and then contrast CT ultimately showing a cystic mass above the uterus approx 6.5cm. As of now pt reports feeling better overall with pain controlled PMH: GERD PSHx: None Meds: None Allergies: NKDA Family hx: grandmother with breast CA, no known ovarian CA Review of Systems Review of Systems ROS Unobtainable: All systems reviewed & no additional complaints except as documented Meds Home Medications and Allergies Home Medications ?Medication ?Instructions ?Recorded ?Confirmed ?Type famotidine 20 mg tablet mg 02/25/25 History omeprazole 20 mg capsule,delayed mg 02/25/25 History release Allergies Allergy/AdvReac Type Severity Reaction Status Date / Time BANANAS Allergy Mild Difficulty Uncoded 02/25/25 02:46 Breathing Exam Vital Signs Temp Pulse Resp BP Pulse Ox O2 Del Method 98.4 F 101 H 17 103/52 L 99 Room Air 02/25/25 12:11 02/25/25 16:23 02/25/25 16:23 02/25/25 16:23 02/25/25 16:23 02/25/25 16:23 Constitutional Constitutional: no acute distress Routine Respiratory Exam Respiratory: Present no resp distress Routine Abdominal Exam Abdominal: Present soft and tenderness (mild infraumbilical tenderness); Absent distended, rebound or guarding Results Results: Laboratory Laboratory results: results reviewed Results: Imaging CT scan - abdomen: report reviewed and image reviewed US - abdomen: report reviewed Assessment & Plan Plan 19F with GERD presenting with infraumbilical pain and nausea, US and CT negative for appendicitis, with findings of ovarian/uterine cyst. Clinically pt appears well overall, not requiring any general surgical intervention OK for PO diet from my standpoint Please feel free to contact me with concerns or questions
[2025-02-25 17:31] LABS: Basophils # (Auto) 0.0 Thou/mm3 (0.0-0.2); Basophils % (Auto) 0 % (0-2.5); Eosinophils # (Auto) 0.0 Thou/mm3 (0.0-0.5); Eosinophils % (Auto) 0 % (0-10); Hematocrit 28.3 % (36.0-46.0); Hemoglobin 10.0 g/dL (12.0-16.0); Immature Granulocytes Auto 0.04 Thou/mm3 (0.00-0.00); Lymphocytes # (Auto) 1.5 Thou/mm3 (1.0-5.0); Lymphocytes % (Auto) 12 % (10-50); Mean Corpuscular HGB Conc 35.3 g/dl (31.0-37.0); Mean Corpuscular Hemoglobin 31.4 pg (25.0-35.0); Mean Corpuscular Volume 89 fL (80-100); Monocytes # (Auto) 0.6 Thou/mm3 (0.0-0.8); Monocytes % (Auto) 5 % (0-12); Neutrophils # (Auto) 10.5 Thou/mm3 (1.8-7.7); Neutrophils % (Auto) 83 % (37-80); Nucleated Red Blood Cell # 0.00 Thou/mm3 (0.00-0.00); Nucleated Red Blood Cell % 0 /100 WBC (0); Platelet Count 234 Thou/mm3 (140-440); RDW Standard Deviation 41.5 fL (36.4-46.3); Red Blood Count 3.18 Miln/mm3 (4.00-5.20); White Blood Count 12.6 Thou/mm3 (4.5-11.0)
--- NOTE | 2025-02-25 17:58 | PC.NURSE ---
BS 85 notified and gave new orders for 5%dextrose in 0.45 sodium chloride
[2025-02-25] MEDS: DEXTROSE 5%-0.45% NS 1,000 ML 100 ML IV (18:06)
--- NOTE | 2025-02-25 18:09 | PC.NURSE ---
Dr Jacobo at bedside speaking to patient
--- NOTE | 2025-02-25 18:44 | EVENTNT_ITS ---
Documentation for date of: 02/25/25 Event Note Event Note: Patient is still uncomfortable. Still reporting pain with deep breaths and feeling lightheaded and dizzy with laying flat. Her hemoglobin dropped from a 12.7 to a 10. A second ultrasound revealed a complex fluid-filled collection measuring about 6 x 6 cm near the right adnexa. Her presentation lab work and imaging are all suggestive of a possible ruptured corpus luteum cyst. Patient was seen. Her mother and her aunt are at bedside now. Patient is consented for a diagnostic laparoscopy, possible laparotomy possible removal of unilateral ovarian cyst. The risks of the procedure was discussed in detail with the lasha ent in front of her mother and aunt including the risk of bleeding, infection, blood transfusion, damage to bowel, bladder, blood vessels or other organs. Prolonged hospital stay and further surgery should any above occur. All questions were answered all consents were signed. Typical postop course was explained. The patient was allowed to ask any questions as well as her family.
--- NOTE | 2025-02-25 23:01 | SUR.PHASEI ---
pt received to [facility]. vss. breathing even and unlabored. dermabond x3 to abdomen cdi. report from dr brown and nurse get.
--- NOTE | 2025-02-25 23:22 | SUR.OPER ---
I&O Diagnostic laparoscopy EBL: 700 IV: 1400 U/O: 30
--- NOTE | 2025-02-25 23:52 | ESOP_ITS ---
Operative Note - COMMERCIAL FIELD INSPECTOR Procedure Date of procedure: 02/25/25 Procedure Performed: Diagnostic laparoscopy, drainage of hemoperitoneum, cauterization right ovary and drainage of right ovarian cyst Indication: Patient is a 19-year-old G0 presented to the emergency room approximately 4:00 in the morning 02/25/2025 with acute abdominal pain that began around 2 in the morning. Patient's original ultrasound did not show free fluid. It showed a bout a 4 x 4 cm right ovarian cyst. Her test was negative. She had a CT scan later that day that was positive for fluid around the spleen and then a second CT scan with contrast that revealed some type of 6 x 6 cm mass above the uterus. Patient's hemoglobin was 12.7 but throughout the day it dropped to a 10. The patient had difficulty taking deep breaths secondary to abdominal pain. Her abdominal exam was suggestive of an acute abdomen with possible hemoperitoneum. Her clinical picture was suspicious for a possible ruptured corpus luteal cyst. She was consented for diagnostic laparoscopy possible laparotomy with possible ovarian cystectomy. Pre-Op diagnosis: 1. Acute abdominal pain 2. Right ovarian cyst 3. Negative test 4. Free fluid in abdomen suggestive of possible hemoperitoneum 5. Suspected ruptured corpus luteal cyst Post-Op diagnosis: Ruptured right corpus luteal cyst Anesthesia type: General Procedure description: After obtaining informed consent, the patient was brought back to the operating room and general anesthesia administered. She was then prepped and draped in the dorsal lithotomy position using Mejia stirrups in a normal sterile fashion. Her bladder was emptied with a straight catheter. She was given 2 g of Ancef by anesthesia. A speculum exam was performed and uterine manipulator inserted. The surgeons gloves were changed and attention was turned to the patient's abdomen where a 5 mm incision was made in her periumbilical fold. A Veress needle was introduced and correct intra-abdominal placement confirmed via the water drop test. The abdomen was allowed to insufflate with 3 L of CO2 gas. A 5 mm trocar and sleeve were introduced with a 5 m camera through the umbilical incision and correct intra-abdominal placement visually confirmed. A 5 mm incision made in her right and left lower quadrant and 5 mm trocar and sleeves introduced under direct visualization. A blunt probe was placed through one of the instrument ports, and pictures were taken of the above findings. Of note patient was found to have a large hemoperitoneum. A Gardiner irrigation device was placed through one of the instrument ports and the pelvis copious irrigated with a total of 3 L of normal saline. Once her anatomy could be visualized, she was noted to have a right ovarian cyst with a small slit in her ovary where it was actively bleeding from a suspected ruptured corpus luteum. This area was actively dripping blood. A Kleppinger bipolar electrocautery device was called for and the edges of the the ovarian laceration were cauterized using the Kleppinger electrocautery until excellent hemostasis was noted.A laparoscopic fine-needle was then inserted through one of the instrument ports into the cyst and the cyst drained. Some of the ovarian cystic fluid was sent to cytology. The pelvis was then copiously irrigated again and Kleppinger used a couple times to ensure adequate hemostasis of the right ovary. Once all the blood was cleared away and the ovary noted be hemostatic , the right ovary was covered with Surgicel hemostatic powder. The procedure was then terminated. All instrumentation was removed the patient's abdomen. The CO2 gas allowed to resolve. All abdominal incisions were closed using subcuticular sutures of 4-0 Monocryl. All instrumentation was removed the patient's vagina and the tenaculum site noted be hemostatic. The patient tolerated the procedure well ,sponge ,lap, and needle counts correct x 2. The patient went to the recovery room in stable condition. Pathology was right ovarian cystic fluid to cytology. Fluids: crystalloid Fluid amount (mL): 1,000 Urine output (mL): 30 Specimen: other (Cystic fluid from right ovarian cyst) Implants: None Estimated blood loss (ml): 750 Findings: 750 cc of clots and old blood present in the patient's abdomen. A approximately 4 x 4 cm cyst on right ovary appeared simple in nature with a rent in her ovary where blood was slowly dripping from a suspected ruptured corpus luteal cyst. Complications: none Surgical staff Operation Date: 02/25/25 20:45 Case Staff Anesthesiologist: James Chavira RNbakery worker: Timoteo Baldwin Diagnosis Discharge Diagnosis (1) Hemorrhagic ovarian cyst: Status: Acute (2) Abdominal pain in female: Status: Acute (3) Hemoperitoneum: Status: Acute Problem details: Status post diagnostic laparoscopy with cauterization of right ovary from ruptured corpus luteal cyst Problem List Completed Was Problem List Reviewed/Reconciled?: Yes
[2025-02-25] MEDS: RINGERS LACTATED 1000 ML 1,000 ML 125 ML IV (23:59)
[2025-02-26] VITALS (8 sets, daily range): BP systolic 105–124; BP diastolic 60–86; PULSE 70–112; RESP 16–95; TEMP 35.9–36.5; O2SAT 95–100; BMI 34.9
--- NOTE | 2025-02-26 | SUR.PHASEI ---
report called to nurse brewster. vss. breathing even and unlabored. mom at bedside. dermabond dressings remain cdi to abdomen x3. denies pain and nausea. tolerating po ice chips.
[2025-02-26] MEDS: RINGERS LACTATED 1000 ML 1,000 ML 125 ML IV ×2 (02:26→11:22)
[2025-02-26 07:21] LABS: Basophils # (Auto) 0.0 Thou/mm3 (0.0-0.2); Basophils % (Auto) 0 % (0-2.5); Eosinophils # (Auto) 0.0 Thou/mm3 (0.0-0.5); Eosinophils % (Auto) 0 % (0-10); Hematocrit 28.9 % (36.0-46.0); Hemoglobin 9.6 g/dL (12.0-16.0); Immature Granulocytes Auto 0.02 Thou/mm3 (0.00-0.00); Lymphocytes # (Auto) 0.7 Thou/mm3 (1.0-5.0); Lymphocytes % (Auto) 7 % (10-50); Mean Corpuscular HGB Conc 33.2 g/dl (31.0-37.0); Mean Corpuscular Hemoglobin 30.3 pg (25.0-35.0); Mean Corpuscular Volume 91 fL (80-100); Monocytes # (Auto) 0.2 Thou/mm3 (0.0-0.8); Monocytes % (Auto) 2 % (0-12); Neutrophils # (Auto) 8.6 Thou/mm3 (1.8-7.7); Neutrophils % (Auto) 90 % (37-80); Nucleated Red Blood Cell # 0.00 Thou/mm3 (0.00-0.00); Nucleated Red Blood Cell % 0 /100 WBC (0); Platelet Count 195 Thou/mm3 (140-440); RDW Standard Deviation 42.6 fL (36.4-46.3); Red Blood Count 3.17 Miln/mm3 (4.00-5.20); White Blood Count 9.5 Thou/mm3 (4.5-11.0)
[2025-02-26 07:38] LABS: Albumin, Serum 3.7 gm/dL (3.5-5.0); Anion Gap 9 (7-16); BUN/Creatinine Ratio 8 Ratio (12-20); Blood Urea Nitrogen < 5 mg/dL (9-23); Calcium 8.2 mg/dL (8.3-10.6); Calcium (Corrected) 8.4 mg/dL (8.5-10.1); Carbon Dioxide 23.0 mMol/L (20.0-31.0); Chloride 109 mMol/L (98-107); Creatinine (Component) 0.6 mg/dL (0.6-1.3); Estimated Creatinine Clearance 166.0 mL/min (>60); Glucose 129 mg/dL (74-106); Osmolality,Calculated 280 (275-295); Phosphorous 3.3 mg/dL (2.4-5.1); Potassium 4.3 mMol/L (3.4-5.1); Sodium 141 mMol/L (136-145); eGFR > 60 See Note
--- NOTE | 2025-02-26 12:09 | ESDS_ITS ---
Planned Discharge Date 02/26/25 DS: Providers Provider Date of admission: 02/26/25 00:10 Primary care physician: Page Caba PA-C Admitting Provider: Jenae Jacobo MD ([facility]) Attending Provider on Admission: Devendra Cueva MD Attending Provider on DC: Lakshmi Monroe MD Discharging Provider: Lakshmi Monroe MD Anticipated date of discharge: 02/26/25 DS: Diagnosis Discharge Diagnosis (1) Hemoperitoneum: Status: Acute (2) Hemorrhagic ovarian cyst: Status: Acute (3) Abdominal pain in female: Status: Acute (4) S/P laparoscopy: Status: Acute Problem List Completed Was Problem List Reviewed/Reconciled?: Yes Hospital Course Hospital Course Hospital course: The patient is a 19-year-old G0 who presented to the ER around 3:00 or 4:00 this morning after waking up and feeling severe mid abdominal pain around 2:00 in the morning. She denied nausea or vomiting. She states she is due for her next menstrual cycle any day now. She denies fevers or chills. She denies diarrhea. She denies blood in her stools. She denies throwing up blood. Her boyfriend, who is a [employer] student, is at bedside. Gynecology was consulted as patient continues to have near syncopal episodes and abdominal pain with deep breaths. Her test is negative. Her hemoglobin is 12.7. A transvaginal ultrasound at approximately 420 in the morning did not reveal any free fluid. She had a 4.8 x 4 cm cyst on her right ovary. Left ovary was normal. No free fluid in the cul-de-sac. Uterus was 7.3 cm with a stripe of 1.[address] was done later at around in the workup revealing some fluid around her spleen. She then recently had a CT scan with contrast that revealed a thick walled mass above the uterus 6.5 x 5.2 cm with mild fluid in her abdomen and pelvis. Concern is about a ruptured corpus luteum cyst. Doubt TOA as patient has no fevers, chills or foul vaginal discharge. She does have a history of some type of upper abdominal pain and was prescribed some type of reflux medication. she under went a laparoscopic drainage of R ovarian cyst and hemoperitoneum on 02/25/[address] Boken / she is doing well and will be discharged home Status at Discharge Cognitive/behavioral status at discharge: Alert and oriented x 3 no shortness of breath Pain no chest pain no palpitations Chest clear bilaterally no additional sounds, no wheezing no rales CVS regular rate and rhythm No CVAT Abdomen nontender, normal bowel sounds No guarding no rigidity No hernias Functional status at discharge: independent ambulation Overall status at discharge: patient is progressing back to baseline Time Spent with Patient Time attestation: Total time spent providing and/or coordinating discharge services: Time spent: Less than 30 minutes Exam - LOCKSTITCH TOPSTITCHER Vital Signs Temp Pulse Resp BP Pulse Ox O2 Del Method O2 Flow Rate 97.2 F 70 18 108/60 97 Room Air 2 02/26/25 08:00 02/26/25 08:00 02/26/25 08:00 02/26/25 08:00 02/26/25 08:00 02/26/25 08:00 02/26/25 00:00 Narrative Exam alert x3 chest clear CVS RRR NO thromegaly Bowel sounds present Abdomen soft no hernias noted/no CVAT Incision CDI No drainage Appropriately tender No calf tenderness Edema Constitutional Constitutional: no acute distress Discharge Plan Plan Patient Disposition: HOME (Self Care) Patient condition on transfer: Stable Prescriptions/Referrals Prescriptions/Med Rec: New ibuprofen 600 mg tablet 600 mg PO Q8H PRN (Reason: pain) Qty: 30 0RF No Action omeprazole 20 mg capsule,delayed release(DR/EC) 20 mg PO DAILY Patient Comments: TAKE 1 CAPSULE BY MOUTH EVERY DAY Referrals: Page Caba PA-C [Primary Care Provider] - In 1 week Patient/Caregiver Discharge Instructions Discharge Activity: activity as tolerated Other Discharge Activity Instructions:: pelvic rest x 2 weeks do not lift >15 lbs x 2 weeks follow up with her provider or at [facility] in 2 weeks return to Emergency Department if persistent nausea or vomiting / follow up with [facility] in 1 to 2 weeks / excuse from work for 1 week Education Materials: Abdominal Pain, Abdomen Surg Dc, Preventing Surgical Site Infections, Understanding Ovarian Cysts Print Language: Armenian Stand Alone Forms: Lisa Award Info., Patient Portal Info Letter, Work/Release Restrictions Discharge Order Discharge Orders: Discharge (Routine); Ordered 02/26/25 Ordered By: Lakshmi Monroe
== END 2025-02-26 14:14 | disposition home or self-care (01) ==
LOC: SERX 02:59 → ED 05:42 → SERX 05:48 → S2EX 20:12 → S3NX 02-26 00:23
PROVIDERS: Physician Assistant; Admitting Provider Obstetrics & Gynecology; Emergency Provider Family Medicine; PCP Physician Assistant; Referring Provider Obstetrics & Gynecology; Visit Provider Obstetrics & Gynecology
PROC: (CPT 49320; principal; 2025-02-25 20:30)
DX: N83.201 Unspecified ovarian cyst, right side (principal); K66.1 Hemoperitoneum
CPT/HCPCS: 58662; 36415; 74176; 74177; 76705; 76770; 76830; 76856; 80053; 80069; 81001; 81025; 83690; 85025; 85610; 86850; 86900; 86901; 86923; 93005; 96361; 96365; 96375; 99284; A4217; A4649; G0378; J0131; J0690; J1100; J1171; J2250; J2270; J2405; J2704; J2710; J3010; J3490; J7030; J7042; J7120; Q9967; A9270; J0665; J1596; J1805

== ENCOUNTER 2025-03-02 09:59 | Outpatient (AMB) | payer BC, SELFPAY ==
--- NOTE | 2025-03-02 10:01 | AMB.GYNCLNOT ---
Vital Signs 03/02/25 10:08 Height 1.63 m Height Method Stated Weight 98.883 kg Weight Measurement Method Standing Scale BMI 37.4 BP 110/61 Blood Pressure Source Automatic Cuff Blood Pressure Location Left Upper Arm Position Sitting Respiration 20 Pulse 100 Pulse Source Monitor Temp 97.8 F Temp Source Oral Pulse Oximetry (%) 98 Oxygen Delivery Method Room Air Allergies/Home Meds Allergies & Medications Allergies BANANAS Allergy (Mild, Uncoded 03/02/25 10:09) Difficulty Breathing Medication Reconciliation omeprazole 20 mg capsule,delayed release 20 mg PO DAILY 02/25/25 [History Confirmed 03/02/25] ibuprofen 600 mg tablet 600 mg PO Q8H PRN pain #30 tabs 02/26/25 [Rx Confirmed 03/02/25] Intake Visit Data Collection New Patient or Established: Established Patient (seen at [facility] within 3 years) Reason for Visit:: EMERGENCY ROOM FOLLOW UP Seen by Clinical Staff ONLY (RN/MA): No Rehabilitation Director Required: No Do You Feel Safe at Home: Yes Authorities Contacted: N/A PCP or OBGYN visit in last 3 months: No Hx Now: No Are you currently on any form of Control: No Last menstrual period: 02/28/25 Pain Present Currently: No Pain Scale Used: Keyes-[place]/Numerical Pain scale:: 0 Smoking Status Smoking Status: Never smoker Immunizations Flu Vaccine in the Last 12 Months: No Flu Vaccine Exclusion Criteria: Refused by 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 She has never had a Pap or pelvic exam. APPOINTMENT SPECIALIST: Past Medical History Additional Operations/Hospitalizations (year & reason): Patient denies any hospitalizations or surgeries Other Relevant History: Patient denies any chronic medical problems including asthma diabetes or hypertension Questionnaires Covid-19 Vaccine Questionnaire Has patient been vacinated for Covid-19 Have you been vacinated for Covid-19: No PHQ-9 PHQ-2 Over the last 2 weeks, how often have you been bothered by any of the following problems? 1. Little interest or pleasure in doing things: not at all 2. Feeling down, depressed, or hopeless: not at all Total score: 0 PHQ-9 3. Trouble falling or staying asleep, or sleeping too much: Not at all 4. Feeling tired or having little energy: Not at all 5. Poor appetite or overeating: Not at all 6. Feeling bad about yourself - or that you are a failure or have let yourself or your family down: Not at all 7. Trouble concentrating on things, such as reading the newspaper or watching television: Not at all 8. Moving or speaking so slowly that other people could have noticed? - Or the opposite - being so fidgety or restless that you have been moving around a lot more than usual: not at all 9. Thoughts that you would be better off or of hurting yourself in some way: Not at all Total score: 0 Source: Developed by Drs. Anil Huerta, Mary Masters, Caesar Jj and colleagues, with an educational ap from [employer]. Depression screen completed yes Social History Living Situation History Marital Status: Single Lives With: Family Housing: House Housing Other:: Pt has a bf who is a LOCOMOTIVE FIRER/FIREMAN student. She works at [employer] Tobacco History Smoking Status: Never smoker Alcohol History Alcohol Intake: Never Substance Use History Substance Use: Denies Domestic Abuse History Do You Feel Safe at Home: Yes History of Present Illness HPI Narrative The patient is a 19-year-old G0 ,previously healthy female, who presented to the [facility] emergency room at about 2:00 in the morning 02/25/2025 with acute abdominal pain. Throughout the day her workup included ultrasounds, lab work, a CT scan and a repeat CT scan with contrast followed by a repeat transvaginal ultrasound. She was eventually diagnosed with a ruptured corpus luteum cyst and taken to the OR the evening of 02/25/2025 by myself for a laparoscopic drainage of a hemoperitoneum and cauterization of ruptured right corpus luteum cyst. The case was finished at approximately 10 or 11 PM so she was kept overnight and discharged the next afternoon by Dr. Monroe. Her hemoglobin in the ER was 12.7 it dropped to 10 during the day the morning after surgery it was 9.6. The patient presents today for follow-up with her mother. She reports no heavy vaginal bleeding. She is on her cycle. Her pain is controlled with ibuprofen which she is not taking very often. I did show her pictures of her laparoscopic surgery and explained the surgery and what happened. All questions were answered. The patient would like to follow-up in about a month and might consider going on control. She is sexually active with her boyfriend using condoms for contraception. She denies heavy bleeding pain nausea vomiting. She is voiding and eating normally. She took a week off work. She usually works at [employer]. 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 Review of Systems Review of Systems Narrative Review of Systems: Patient has some shoulder pain and a little bit of bloating in her abdomen. No fevers chills no nausea vomiting no constipation or diarrhea no heavy vaginal bleeding Exam Narrative Physical exam: Patient appears slightly pale General Limitations: no limitations General Appearance: alert, in no apparent distress, cooperative, healthy appearing and well groomed Abdominal Abdominal exam: Present soft, tenderness and other (Incisions in her umbilicus right and left lower quadrant healing well. Some bruising over her right lower quadrant incision.) Abdominal tenderness: Present diffuse and mild Psych Psychiatric exam: Present normal affect and normal mood Office Procedures OBC Clinic LOC & Office Proc's Nursing/Assessment Patient Status: Established Patient OB Clinic Nursing Assessment: Medication Reconciliation, Update PMH in EMR and Vital Signs OB Clinic Coordination of Care: Complex Care and Chronic Disease 1-5, Consent,records obtained, informed consent, Education Simp Pt/Fam, Lab and Imaging orders, Results/Orders obtained and Staff clarify orders Established Patient Charge Established Patient Point Assignment: 105 Established Patient Point Charge: EP Level 3 (80-115) Assessment & Plan Diagnosis / Problem List (1) S/P laparoscopy: Status: Acute Plan: Pelvic rest x 2 weeks. No heavy lifting intercourse tampons or douching x 2 weeks. (2) Hemorrhagic ovarian cyst: Status: Acute Plan: Status post laparoscopy and cauterization of ruptured right corpus luteal cyst. Doing well from a surgical standpoint. Follow-up in 4 weeks. (3) Anemia: Status: Acute Qualifiers: Anemia type: other cause Other causes of anemia: acute posthemorrhagic Qualified Code(s): D62 - Acute posthemorrhagic anemia Plan: Recommend oral iron. Recheck hemoglobin in 1 month Additional Plan Follow Up: 4 Weeks (Appointment given for 03/25/[address] Jacobo)
[2025-03-02 10:08] VITALS: BP 110/61; PULSE 100; RESP 20; TEMP 36.6; O2SAT 98; BMI 37.4
== END 2025-03-02 10:43 | disposition home or self-care (01) ==
LOC: HODSOBC 09:59
PROVIDERS: PCP Physician Assistant; Referring Provider Physician Assistant; Supervising Provider Obstetrics & Gynecology; Visit Provider Obstetrics & Gynecology
DX: Z48.816 Encounter for surgical aftercare following surgery on the genitourinary system (principal); N83.201 Unspecified ovarian cyst, right side; D64.9 Anemia, unspecified
CPT/HCPCS: 99213; G0463

== ENCOUNTER 2025-03-25 12:56 | Outpatient (AMB) | payer BC, SELFPAY ==
[2025-03-25 13:25] VITALS: BP 110/71; PULSE 91; RESP 18; TEMP 36.2; O2SAT 98; BMI 37.2
--- NOTE | 2025-03-25 13:25 | AMB.GYNCLNOT ---
Vital Signs 03/25/25 13:25 Height 1.63 m Height Method Stated Weight 98.94 kg Weight Measurement Method Standing Scale BMI 37.2 BP 110/71 Blood Pressure Source Automatic Cuff Blood Pressure Location Left Upper Arm Position Sitting Respiration 18 Pulse 91 Pulse Source Monitor Temp 97.2 F Temp Source Oral Pulse Oximetry (%) 98 Oxygen Delivery Method Room Air Allergies/Home Meds Allergies & Medications Allergies BANANAS Allergy (Mild, Uncoded 03/25/25 13:27) Difficulty Breathing Medication Reconciliation omeprazole 20 mg capsule,delayed release 20 mg PO DAILY 02/25/25 [History Confirmed 03/25/25] ibuprofen 600 mg tablet 600 mg PO Q8H PRN pain #30 tabs 02/26/25 [Rx Confirmed 03/25/25] Intake Visit Data Collection New Patient or Established: Established Patient (seen at [facility] within 3 years) Reason for Visit:: POST OP Seen by Clinical Staff ONLY (RN/MA): No Fruit Tester Required: No Do You Feel Safe at Home: Yes Authorities Contacted: N/A PCP or OBGYN visit in last 3 months: Yes Date of Last PCP or OBGYN visit: 03/02/25 Hx Now: No Are you currently on any form of Control: No Last menstrual period: 02/26/25 Pain Present Currently: No Pain Scale Used: Keyes-[place]/Numerical Pain scale:: 0 Smoking Status Smoking Status: Never smoker Immunizations Flu Vaccine in the Last 12 Months: No Flu Vaccine Exclusion Criteria: No Exclusion Criteria Patient Observation Assistant history Patient Observation Assistant History Menstrual regularity: regular Flow: normal Monthly: Yes How many days does period last: 5 Age at menarche: 11 Menopausal: No 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 No hypertension, asthma or diabetes She has never had a Pap or pelvic exam She is sexually active with her boyfriend but not using oral contraceptive pills. Questionnaires PHQ-9 PHQ-2 Over the last 2 weeks, how often have you been bothered by any of the following problems? 1. Little interest or pleasure in doing things: not at all 2. Feeling down, depressed, or hopeless: not at all Total score: 0 PHQ-9 3. Trouble falling or staying asleep, or sleeping too much: Not at all 4. Feeling tired or having little energy: Not at all 5. Poor appetite or overeating: Not at all 6. Feeling bad about yourself - or that you are a failure or have let yourself or your family down: Not at all 7. Trouble concentrating on things, such as reading the newspaper or watching television: Not at all 8. Moving or speaking so slowly that other people could have noticed? - Or the opposite - being so fidgety or restless that you have been moving around a lot more than usual: not at all 9. Thoughts that you would be better off or of hurting yourself in some way: Not at all Total score: 0 If you checked off any problems, how difficult have these problems made it for you to do your work, take care of things at home, or get along with other people?: not difficult at all Source: Developed by Drs. Anil Huerta, Mary Masters, Caesar Jj and colleagues, with an educational ap from [employer]. Depression screen completed yes Social History Living Situation History Marital Status: Single Lives With: Family Housing: House Housing Other:: Pt has a bf who is a INDUSTRIAL RELATIONS MANAGER student. She works at [employer] Tobacco History Smoking Status: Never smoker Second Hand Smoke Exposure: No Alcohol History Alcohol Intake: Never Substance Use History Substance Use: Denies Domestic Abuse History Do You Feel Safe at Home: Yes History of Present Illness HPI Narrative The patient is a 20-year-old G0 who presents for postop check. I was consulted on her in the emergency room on 02/25/2025 when she came in with abdominal pain and pain while taking a deep breath. After undergoing an ultrasound and two CT scans, her exam was suggestive of a possible ruptured corpus luteum cyst. I took her to the operating room late on 02/25/2025 for a diagnostic laparoscopy, cauterization of right ovary and drainage of her right cyst for a ruptured right corpus luteal cyst. Patient had about 700 cc of blood in her abdomen. She stayed overnight and was discharged home 02/26/25. The patient states she is doing well. She denies any pain. She stated that she barely took pain meds after surgery. No fevers chills no nausea or vomiting. She states her cycle is due anytime now. She declines control pills for prevention of future cyst on her ovaries. She states she prefers to stay off them and will continue to use barrier methods or timing for contraception. Exam General Limitations: no limitations General Appearance: alert, in no apparent distress, comfortable, cooperative, healthy appearing and well groomed Resp Respiratory exam: Present normal lung sounds bilaterally Card Cardiovascular exam: Present regular rate, normal rhythm and normal heart sounds Abdominal Abdominal exam: Present soft, normal bowel sounds and other (All 3 laparoscopic incisions have healed well.) Psych Psychiatric exam: Present normal affect and normal mood Skin Skin exam: Present warm, dry, intact and normal color Office Procedures OBC Clinic LOC & Office Proc's Nursing/Assessment Patient Status: Established Patient OB Clinic Nursing Assessment: Medication Reconciliation, Update PMH in EMR and Vital Signs OB Clinic Coordination of Care: Consent,records obtained, informed consent, Education Simp Pt/Fam, Lab and Imaging orders, Results/Orders obtained and Staff clarify orders Established Patient Charge Established Patient Point Assignment: 80 Established Patient Point Charge: EP Level 3 (80-115) Assessment & Plan Diagnosis / Problem List (1) Hemorrhagic ovarian cyst: Status: Acute Assessment and Plan: Patient is postop week 3 after diagnostic laparoscopy, drainage of hemoperitoneum, cauterization of right ovary and removal of right ovarian cyst for a ruptured corpus luteal cyst. Patient has healed well from surgery. She declines control at this time in the form of OCPs or Nexplanon. Patient declines an IUD. She will follow-up yearly for a Pap and pelvic exam. She will call the office for any gynecological concerns. She can go back to normal activities at this time. All questions were answered and the laparoscopic pictures from the patient's surgery were reviewed with the patient. (2) S/P laparoscopy: Status: Acute (3) Hemoperitoneum: Status: Acute
== END 2025-03-25 14:14 | disposition home or self-care (01) ==
LOC: HODSOBC 12:56
PROVIDERS: Supervising Provider Obstetrics & Gynecology; Visit Provider Obstetrics & Gynecology
DX: Z48.816 Encounter for surgical aftercare following surgery on the genitourinary system (principal); Z87.42 Personal history of other diseases of the female genital tract; Z91.018 Allergy to other foods
CPT/HCPCS: 99213; G0463